=== PATIENT | female | born 1995 | race Two or more races ===

== ENCOUNTER → 2024-09-09 | Outpatient (CLI) | payer OTHER ==
[~2024-09-09] MED LIST: PRENTAB9 PO
[2024-09-09 17:45] LABS: PLATELET COUNT, AUTOMATED 143 10^3/uL (150-450)
[2024-09-09 18:38] LABS: HIV 1&2 SCREEN NEGATIVE (NEGATIVE)
[2024-09-09 18:47] LABS: HEPATITIS C VIRUS ABY INDEX 0.08 INDEX (<0.8)
== END ==
LOC: M PLALAB 16:04
PROVIDERS: ATTEND Obstetrics & Gynecology
DX: Z36.9 Encounter for antenatal screening, unspecified (principal)

== ENCOUNTER → 2024-09-18 | Outpatient (REF) | payer OTHER | LOC: M SFHCWAGY 10:14 | PROVIDERS: ATTEND Obstetrics & Gynecology | DX: Z34.80 Encounter for supervision of other normal pregnancy, unspecified trimester (principal) ==

== ENCOUNTER → 2024-09-25 | Outpatient (CLI) | payer OTHER | LOC: M RAD 10:59 | PROVIDERS: ATTEND Obstetrics & Gynecology | DX: O28.8 Other abnormal findings on antenatal screening of mother (principal) ==

== ENCOUNTER 2024-09-28 08:50 | Inpatient (IN) | payer OTHER ==
[~2024-09-28] VITALS: Ht 147.3 cm; Wt 49.2 kg
[2024-09-28] VITALS (37 sets, daily range): BP systolic 93–149; BP diastolic 50–75; O2SAT 99
[2024-09-28] MEDS ORDERED: HOME MED LIST COMPLETE! XX SCH (09:15)
[2024-09-28 10:24] LABS: PLATELET COUNT, AUTOMATED 131 10^3/uL (150-450)
[2024-09-28] MEDS ORDERED: diphenhydrAMINE 50 MG/ML VIAL IV PRN (10:35)
[2024-09-28] MEDS ORDERED: NALOXONE INJ 0.4 MG/1 ML VIAL IV PRN (10:35)
[2024-09-28] MEDS ORDERED: LR 500 ML IV PRN (10:35)
[2024-09-28] MEDS ORDERED: EPIDURAL/PCA KEYS XX PRN (10:35)
[2024-09-28 11:13] LABS: HIV 1&2 SCREEN NEGATIVE (NEGATIVE)
[2024-09-28 11:21] LABS: HEPATITIS C VIRUS ABY INDEX < 0.02 INDEX (<0.8)
[2024-09-28] MEDS: LACTATED RINGER'S 1000 ML IV STA (11:21)
[2024-09-28] MEDS: LR 1,000 ML IV SCH (11:21)
[2024-09-28] MEDS: FENTANYL/ROPIVACAINE/NACL BAG 100 ML EPIDURAL SCH (11:23)
[2024-09-28] MEDS: ONDANSETRON 4MG 2ML VIAL IV PRN (12:35)
[2024-09-28] MEDS: LIDOCAINE 1% MDV 20 ML VIAL INFIL PRN (16:43)
[2024-09-28] MEDS: OXYTOCIN DRIP 30 UNITS in IV 1 EA IV PRN (16:44)
[2024-09-28] MEDS ORDERED: DIBUCAINE 1% OINTMENT 30 GM TOP PRN (17:45)
[2024-09-28] MEDS ORDERED: RHOGAM 300MCG (1500IU) INJ IM SCH (17:45)
[2024-09-28] MEDS ORDERED: METHYLERGONOVINE MALEATE 0.2 MG TAB PO PRN (17:45)
[2024-09-28] MEDS ORDERED: IBUPROFEN 600 MG TAB PO PRN (17:45)
[2024-09-28] MEDS ORDERED: ACETAMINOPHEN 325 MG TAB PO PRN (17:45)
[2024-09-28] MEDS: IBUPROFEN 800 MG TAB PO PRN (17:55)
[2024-09-29 06:00] VITALS: BP 95/51; O2SAT 98
[2024-09-29] MEDS: ACETAMINOPHEN 500 MG TAB PO PRN (09:00)
[2024-09-29] MEDS: PRENATAL VITAMINS CHEWABLE TABLET PO SCH (09:00)
[2024-09-29] MEDS: DOCUSATE SODIUM 100 MG CAPSULE PO PRN (13:46)
[2024-09-29 18:25] VITALS: BP 110/65; O2SAT 99
[2024-09-29] MEDS: SIMETHICONE 80MG CHEW TAB PO PRN (22:46)
[2024-09-30] MEDS ORDERED: MEASLES,MUMPS,RUBELLA VACCINE INJ (MMR-II) SC.IMMUN ONE (09:00)
[2024-09-30] MEDS ORDERED: IBUP-1022 PO (10:39)
[2024-09-30] MEDS ORDERED: ACET-683 PO (10:39)
== END 2024-09-30 11:53 | disposition home or self-care (01) | DRG 807 ==
LOC: M LDO 08:50 → M LDI 09:42 → M OBS 18:30
PROVIDERS: ADMIT Specialist; ATTEND Specialist
PROC: 10E0XZZ Delivery of Products of Conception, External Approach (ICD-10-PCS; principal; 2024-09-28)
PROC: 0KQM0ZZ Repair Perineum Muscle, Open Approach (ICD-10-PCS; 2024-09-28)
DX: O69.81X0 Labor and delivery complicated by cord around neck, without compression, not applicable or unspecified (principal); Z37.0 Single live birth; Z3A.38 38 weeks gestation of pregnancy; O70.1 Second degree perineal laceration during delivery

== ENCOUNTER 2024-10-02 21:21 | Emergency (ER) | payer OTHER ==
[~2024-10-02] VITALS: Ht 147.3 cm; Wt 44.8 kg
[~2024-10-02 21:21] MED LIST changes: +ACET-683 PO; +IBUP-1022 PO
[2024-10-02 21:23] VITALS: BP 126/71; TEMP 97.9; O2SAT 100
== END 2024-10-02 22:50 | disposition left against medical advice (07) ==
LOC: M ED 21:21
DX: Z53.21 Procedure and treatment not carried out due to patient leaving prior to being seen by health care provider (principal)

== ENCOUNTER 2024-10-06 13:55 | Emergency (ER) | payer OTHER ==
[~2024-10-06] VITALS: Ht 147.3 cm; Wt 43.9 kg
[2024-10-06 15:48] VITALS: BP 107/61; TEMP 98.5; O2SAT 99
== END 2024-10-06 16:06 | disposition home or self-care (01) ==
LOC: M ED 13:55
DX: O90.1 Disruption of perineal obstetric wound (principal); Z79.1 Long term (current) use of non-steroidal anti-inflammatories (NSAID); Z79.810 Long term (current) use of selective estrogen receptor modulators (SERMs)

== ENCOUNTER → 2025-01-07 | Outpatient (REF) | payer OTHER ==
[~2025-01-07] MED LIST changes: -IBUP-1022 PO; +IBUP600T42 PO
[2025-01-09 09:53] LABS: HPV APTIMA Not Detected (Not Detected)
== END ==
LOC: M SFHCWAGY 17:21
PROVIDERS: ATTEND Specialist
DX: Z01.419 Encounter for gynecological examination (general) (routine) without abnormal findings (principal)
CPT/HCPCS: 87624; G0123

== ENCOUNTER 2025-01-15 16:47 | Emergency (ER) | payer OTHER ==
[~2025-01-15] VITALS: Ht 147.3 cm; Wt 46.9 kg
[2025-01-15 16:50] VITALS: TEMP 99.4
[2025-01-15 17:34] LABS: PLATELET COUNT, AUTOMATED 227 10^3/uL (150-450)
[2025-01-15] MEDS: KETOROLAC 30 MG/ML 1 ML VIAL IV ONE (17:41)
[2025-01-15] MEDS: NS (Normal Saline) 0.9% 1,000 ML IV ONE (17:41)
[2025-01-15 17:58] LABS: INR 0.96
[2025-01-15 18:17] LABS: HCG, SERUM QUALITATIVE NEGATIVE (NEGATIVE)
[2025-01-15 19:21] VITALS: BP 121/59; O2SAT 100
== END 2025-01-15 19:28 | disposition home or self-care (01) ==
LOC: M ED 16:47
DX: T83.39XA Other mechanical complication of intrauterine contraceptive device, initial encounter (principal); N93.9 Abnormal uterine and vaginal bleeding, unspecified; Z79.1 Long term (current) use of non-steroidal anti-inflammatories (NSAID)
CPT/HCPCS: 36415; 76830; 76856; 84703; 85027; 85610; 85730; 86850; 86900; 86901; 93976; 96361; 96374; 99284; J1885